=== PATIENT | male | born 1950 | race Caucasian/White ===

== ENCOUNTER → 2016-08-08 | Outpatient (CLI) | payer OTHER ==
--- NOTE | 2016-08-08 13:27 | DIAGNOSTIC IMAGING REPORT ---
MRI OF THE BRAIN WITHOUT CONTRAST CLINICAL HISTORY: Chiari malformation. Cervical myelopathy. Buzzing sound in head. COMPARISON STUDY: None. TECHNIQUE: Utilizing a 1.5 Adelina magnet and dedicated coil, multiplanar, multiecho imaging of the brain was performed without IV contrast. FINDINGS: There are no areas of restricted diffusion. No acute intracranial hemorrhage, midline shift or mass effect is present. Ventricular system is normal. Basilar cisterns are patent. There are no extra axial collections. Flow-voids for the major intracranial vessels are present. There are are a few white matter T2 hyperintense foci. These measure up to 4 mm. No intracranial masses identified on this unenhanced exam. Calvarial signal is maintained. Orbits and sinuses are unremarkable. There is no fluid within the mastoid air cells. There is no evidence of a Chiari 1 malformation. IMPRESSION: 1. No acute intracranial findings. 2. Minimal small vessel disease. 3. Unremarkable unenhanced MRI of the brain. 4. No Chiari 1 malformation. Electronically signed by: Filiberto Rangel M.D. 08/08/2016 1:25 PM Dictated Date/Time: 08/08/2016 1:16 PM
--- NOTE | 2016-08-08 13:38 | DIAGNOSTIC IMAGING REPORT ---
MRI OF THE CERVICAL SPINE WITHOUT CONTRAST WITH FLEXION AND EXTENSION INCLUDING CSF FLOW CLINICAL HISTORY: Chiari malformation. Cervical myelopathy. COMPARISON STUDY: MRI of the cervical spine January 08, 2006. TECHNIQUE: Utilizing a 1.5 Adelina magnet and dedicated coil, sagittal and axial T2-weighted sequences of the cervical spine were obtained in the neutral, flexion and extension positions with CSF flow in each position. FINDINGS: Alignment of the cervical spine is anatomic. There is no evidence for instability during flexion or extension. Cervical cord signal and caliber are normal. There is a 1.8 cm T2 hyperintense lesion at T4 vertebral body. This lesion was likely present on MRI of January 09, 2016. This lesion is likely benign. There is no suspicious marrow replacement. There is no intracanalicular mass or fluid collection. There is no evidence for a Chiari I malformation. The cerebellar tonsils are at the level the foramen magnum. CSF flow is normal in the neutral, flexion and extension positions. Mild multilevel disc bulges and small disc protrusions are noted at the C3-C4, C4-C5, C5-C6, C6-C7 and C7-T1 levels. Mild multilevel central canal narrowing is noted. The neural foramen are suboptimally assessed on this exam but there is suspected mild multilevel neural foraminal stenosis. IMPRESSION: 1. Normal cervical cord signal and caliber. 2. No Chiari I malformation. 3. Mild multilevel degenerative disc disease and facet arthrosis with mild multilevel central canal and neural foraminal stenosis. Electronically signed by: Filiberto Rangel M.D. 08/08/2016 1:36 PM Dictated Date/Time: 08/08/2016 1:28 PM
== END | disposition home or self-care (01) ==
LOC: C.MRIBC 11:10
DX: M50.00 Cervical disc disorder with myelopathy, unspecified cervical region (principal); Q07.02 Arnold-Chiari syndrome with hydrocephalus; M54.12 Radiculopathy, cervical region

== ENCOUNTER → 2017-07-09 | Outpatient (CLI) | payer OTHER ==
--- NOTE | 2017-07-09 11:41 | DIAGNOSTIC IMAGING REPORT ---
MRA HEAD WITHOUT CONTRAST CLINICAL HISTORY: 67 years-old Male presenting with family history of intracranial aneurysms, asymptomatic. TECHNIQUE: MR angiography of the head was performed without the use of intravenous contrast using 3-D [id number] technique. 3-D volumetric and/or maximum intensity projection (MIP) images were subsequently reconstructed for review. IV contrast: None. COMPARISON: Noncontrast MR brain from 08/08/2016. FINDINGS: Anterior circulation demonstrates patent intracranial portions of the internal carotid arteries. Anterior and middle cerebral arteries patent. Anterior communicating artery patent. Posterior aneurysm suspected along the cavernous portion of the left internal carotid artery measuring 1.4 mm protruding laterally (series 3 image 97). Additional blister aneurysm along the petrous-cavernous junction of the right ICA measuring 1.2 mm protruding anterolaterally (series 3 image 99). Posterior circulation demonstrates codominant vertebral arteries. Posterior inferior cerebellar arteries patent. Superior cerebellar and posterior cerebral arteries patent. Left posterior communicating artery patent. Right posterior commuting artery hypoplastic or aplastic. No focal occlusion or significant stenosis within limitations of noncontrast MR angiography. IMPRESSION: 1. 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 No other aneurysm is evident. Electronically signed by: Deep Moore M.D. 07/09/2017 11:40 AM Dictated Date/Time: 07/09/2017 11:35 AM
== END | disposition home or self-care (01) ==
LOC: C.MRI 10:35
DX: I67.1 Cerebral aneurysm, nonruptured (principal); Z82.49 Family history of ischemic heart disease and other diseases of the circulatory system

== ENCOUNTER → 2017-12-12 | Outpatient (CLI) | payer OTHER | END | disposition home or self-care (01) | LOC: C.LAB 07:43 | DX: E78.5 Hyperlipidemia, unspecified (principal); Z13.1 Encounter for screening for diabetes mellitus ==

== ENCOUNTER → 2017-12-14 | Outpatient (CLI) | payer OTHER ==
[2017-12-14 12:58] LABS: LUTEINIZING HORMONE 3.08 IU/L; PROLACTIN 5.99 ng/mL
[2017-12-14 12:59] LABS: ALBUMIN 3.9 gm/dl (3.4-5.0); ALKALINE PHOSPHATASE 40 U/L (45-117); ALT/SGPT 25 U/L (12-78); AST/SGOT 22 U/L (15-37); BLOOD UREA NITROGEN 18 mg/dl (7-18); CARBON DIOXIDE 30 mmol/L (21-32); CREATININE 0.94 mg/dl (0.60-1.40); GLUCOSE 57 mg/dl (70-99); SODIUM 140 mmol/L (136-145); TOTAL PROTEIN 7.4 gm/dl (6.4-8.2)
== END | disposition home or self-care (01) ==
LOC: C.LAB 10:22
DX: N62 Hypertrophy of breast (principal)

== ENCOUNTER → 2018-01-05 | Outpatient (CLI) | payer OTHER | END | disposition home or self-care (01) | LOC: C.PATH 08:57 | DX: N62 Hypertrophy of breast (principal) ==

== ENCOUNTER 2020-02-07 09:41 | Observation (INO) ==
--- NOTE | 2020-01-31 15:34 | PAT Medication Instructions ---
Medication Instructions Date of Service January 31, 2020 Home Medications aspirin [Aspirin Childrens] 81 mg PO QAM atorvastatin 20 mg PO QAM ibuprofen 200 mg PO Q6H PRN multivitamin 1 tab PO QAM omega 0-kal-vin-fish oil [Fish Oil] 1 cap PO QAM ASK your surgeon for instructions ibuprofen 200 mg PO Q6H PRN ASK your prescriber and surgeon aspirin [Aspirin Childrens] 81 mg PO QAM STOP taking 2 weeks before surgery (Or stop as soon as possible) omega 5-pho-xbs-fish oil [Fish Oil] 1 cap PO QAM DO NOT take the morning of surgery multivitamin 1 tab PO QAM Take morning of surgery With a small sip of water, OTHERWISE NOTHING TO EAT OR DRINK AFTER MIDNIGHT: atorvastatin 20 mg PO QAM Other Notes If you have any questions please call us at [phone] or [phone] or [phone] or [phone]
--- NOTE | 2020-02-01 09:27 | Anesthesiology Consultation ---
Date of Service February 01, 2020 Assessment & Plan (1) Encounter for pre-operative examination: Chart Review Chart Review: Acceptable Risk for Surgery (pending preop Covid testing ) and Patient seen in Pre Admission Testing Per [facility] appt on 02/01/20, pt resides in [facility]. Traveled to [place] to drop son off >2 weeks ago. No known Covid positive contacts or Covid related symptoms. Pt had Covid testing done at [facility] appt on 02/01/20= results pending. Educated on importance of self quarantining, social distancing and wearing mask in public both for the patient and household contacts. Teaching & Discussion Pre-Anesthesia Teaching/Discussion Notes: Instructed NPO after midnight before surgery,except medications with 15 cc of water. Medication instructions p rovided according to the [facility] guidelines. History Surgery Operation Date: 02/07/20 07:30 Proposed Procedures p Robotic Laparoscopic Prostatectomy with Lymph Node Dissection - Seth Burris MD Height/Weight Height: 6 ft Weight: 82.8 kg Allergies Allergy/AdvReac Type Severity Reaction Status Date / Time No Known Allergies AdvReac Unknown Verified 01/26/20 13:25 Medications Home Medications Medication Instructions Recorded Confirmed Last Taken aspirin [Aspirin Childrens] 81 mg PO QAM 09/06/19 01/26/20 09/06/19 atorvastatin 20 mg PO QAM 09/06/19 01/26/20 09/06/19 ibuprofen 200 mg PO Q6H PRN 09/06/19 01/26/20 09/06/19 09:00 600 mg multivitamin 1 tab PO QAM 09/06/19 01/26/20 09/06/19 omega 1-dml-vto-fish oil [Fish Oil] 1 cap PO QAM 09/06/19 01/26/20 09/06/19 Past Medical History Medical History Cervical radiculopathy Stable and chronic Hyperlipidemia Prostate cancer REASON FOR SURGERY- RECENTLY DISCOVERED Tinnitus Exercise / Class Metabolic Activity II 4-5 Yardwork/Stairs/Walk up hill (ONE FLIGHT OF STAIRS- NO CHEST PAIN OR SOB) Past Family History Family History Sister Diabetes Father , in his 80s S/P CABG x 5 Heart disease Mother , 63yo Brainstem hemorrhage Sister Hypertension Stroke Brother , 37yo Hodgkins disease Sister Obesity Son No problems noted. Son No problems noted. Past Surgical History Surgical History H/O hand surgery Surgery on right thumb H/O shoulder surgery 2 surgeries on right for rotator cuff 1 surgery on left for rotator cuff History of appendectomy History of carpal tunnel surgery RT/LEFT History of colonoscopy History of tonsillectomy History of tooth extraction Hx of vasectomy VASECTOMY REVERSAL Past Anesthesia History No Hx of Anesthesia Complications and No Family Hx of Anesthesia Complications History of PONV No Hx of PONV and Hx of Motion Sickness Social History Smoking Status: Former smoker tobacco type: cigarettes Do You Dip or Chew Tobacco: No Smoking End Date: QUIT AT AGE 28 Hx Alcohol Use: Yes Alcohol type: beer alcohol intake frequency: a few times a month Hx Substance Use: No substance use type: does not use Review of Systems Occ snoring- no witnessed apnea. No hx of sleep study. Patient denies chest pain, shortness of breath, dyspnea on exertion, reflux, cough, wheezing, palpitations. No hx of seizures, stroke, [place]. No hx of blood clots or blood transfusions Physical Exam Vital Signs VITALS BP 104/65 P 63 TEMP 97.6 SP02 98% RESP 16 Constitutional no acute distress ENMT Mouth: no TMJ clicking Thyromental Distance: > or= 3.5 Finger Breadths (3.5) Mallampati Class: II Partial plates on top and bottom Neck neck extension not limited Respiratory normal respiratory effort; no respiratory distress Auscultation: lungs clear to auscultation bilaterally; no wheezes Cardiovascular Rate/Rhythm: regular rate and regular rhythm Heart Sounds: no murmur Vessels: no carotid bruit Musculoskeletal Spine: no pain with cervical ROM Neurologic moves all extremities Psychiatric Orientation: alert Testing Laboratory Results 02/01/20 09:52 02/01/20 09:52 Urine Color Yellow 02/01/20 09:54 Urine Appearance Clear (Clear) 02/01/20 09:54 Urine pH 6.0 (4.5-7.5) 02/01/20 09:54 Ur Specific [place] 1.020 (1.000-1.030) 02/01/20 09:54 Urine Protein Negative (Negative) 02/01/20 09:54 Urine Glucose (UA) Negative (Negative) 02/01/20 09:54 Urine Ketones Negative (Negative) 02/01/20 09:54 Urine Nitrite Negative (Negative) 02/01/20 09:54 Ur Leukocyte Esterase Negative (Negative) 02/01/20 09:54 Blood Type A Positive 02/01/20 09:54 Antibody Screen NEGATIVE 02/01/20 09:54 Electrocardiogram Date: 09/06/19 Findings: + NSR @ (65) Chest X-Ray Date: 09/06/19 Findings: + NAD The pulmonary vasculature is noncongested. Chronic interstitial thickening is similar to previous. No airspace consolidation or large pleural effusion is identified. No pneumothorax is seen. Other Testing Chest CTA 09/06/19= There is no evidence for pulmonary embolus. No pleural effusions. No pneumothorax. No mediastinal or hilar lymphadenopathy. The central airways are patent. The lungs are clear.
[2020-02-01 10:18] LABS: Basophils # (auto) 0.02 K/uL (0-0.2); Basophils % (auto) 0.4 %; Eosinophils # (auto) 0.12 K/uL (0-0.5); Eosinophils % (auto) 2.1 %; Hematocrit (blood only) 42.9 % (42-52); Hemoglobin 14.4 g/dL (14.0-18.0); Immature Granulocytes # (auto) 0.01 K/uL (0.00-0.02); Immature Granulocytes % (auto) 0.2 %; Lymphocytes # (auto) 1.94 K/uL (1.2-3.4); Lymphocytes % (auto) 34.2 %; Mean Corpuscular Hemoglobin 31.6 pg (25-34); Mean Corpuscular Hgb Conc 33.6 g/dL (32-36); Mean Corpuscular Volume 94.3 fL (80-100); Mean Platelet Volume 10.1 fL (7.4-10.4); Monocytes # (auto) 0.46 K/uL (0.11-0.59); Monocytes % (auto) 8.1 %; Neutrophils # (auto) 3.12 K/uL (1.4-6.5); Platelet Count 276 K/uL (130-400); RDW Coefficient of Variation 13.4 % (11.5-14.5); RDW Standard Deviation 46.1 fL (36.4-46.3); Red Blood Count 4.55 M/uL (4.7-6.1); White Blood Count 5.67 K/uL (4.8-10.8)
[2020-02-01 10:24] LABS: Appearance Urine Clear (Clear); Bilirubin Urine Negative (Negative); Blood Urine Negative (Negative); Color Urine Yellow; Glucose Urine UA Negative (Negative); Ketones Urine Negative (Negative); Leukocyte Esterase Urine Negative (Negative); Nitrite Urine Negative (Negative); Protein Urine Negative (Negative); Urobilinogen Urine Negative (Negative)
[2020-02-01 10:41] LABS: BUN Creatinine Ratio 22.3 (10-20); Calcium 9.3 mg/dl (8.5-10.1); Creatinine Clr Calc Pharmacy 79.4 ml/min; Est GFR (African American) 93.6; Est GFR (Non-African American) 80.8; Potassium 4.8 mmol/L (3.5-5.1)
[~2020-02-07 09:41] MED LIST: CEFAZOLIN 3000MG 72.5 ML IV SCH; HEPARIN SOD 5,000 UNIT/0.5 ML VIAL SQ SCH; LR 15ML/HR IV SCH; MIDAZOLAM HCL 1 MG/ML 2ML VIAL ONE; fentaNYL citrate 100 MCG/2 ML VIAL ONE
--- NOTE | 2020-02-07 10:54 | History & Physical Bridge Note ---
Date of Service February 07, 2020 History & Physical Bridge Note I have examined the patient, reviewed the History & Physical and in the interval since the performance of the History & Physical I have noted the following changes of clinical significance: no changes noted
[2020-02-07] MEDS ORDERED: PHENYLEPHRINE 100MCG/ML 5ML SYR IV PRN (10:58)
[2020-02-07] MEDS ORDERED: ATROPINE SULFATE 0.1 MG/ML 10ML SYR IV PRN (10:58)
[2020-02-07] MEDS ORDERED: LABETALOL HCL IV 5 MG/ML 20ML IV PRN (10:58)
[2020-02-07] MEDS ORDERED: MEPERIDINE HCL 25 MG/ML CARP/VIAL IV PRN (10:58)
[2020-02-07] MEDS ORDERED: ePHEDrine sulfate 50 MG/ML AMP IV PRN (10:58)
[2020-02-07] MEDS ORDERED: ONDANSETRON INJ 2 MG/ML 2 ML VIAL IV PRN ×2 (10:58→16:59)
[2020-02-07] MEDS ORDERED: HYDROmorphone INJ 1 MG/ML SYRINGE IV PRN (10:58)
[2020-02-07] MEDS ORDERED: BUPIVACAINE 0.5 % 5 MG/1 ML MPF 30ML VIAL ONE (11:08)
[2020-02-07] MEDS ORDERED: LARYING-O-JET KIT (LTA) ONE (12:19)
[2020-02-07] MEDS ORDERED: NEOSTIGMINE METHYLSULFATE 5 MG/5 ML SYR ONE (12:19)
[2020-02-07] MEDS ORDERED: PHENYLEPHRINE 100MCG/ML 5ML SYR ONE (12:19)
[2020-02-07] MEDS ORDERED: LIDOCAINE HCL 2% 2 ML VIAL/AMP(20MG/ML) INFIL ONE (12:19)
[2020-02-07] MEDS ORDERED: ROCURONIUM BROMIDE 10 MG/ML 5 ML VIAL IV ONE ×2 (12:19→14:16)
[2020-02-07] MEDS ORDERED: GLYCOPYRROLATE 0.2 MG/ML VIAL ONE (12:19)
[2020-02-07] MEDS ORDERED: DEXAMETHASONE SOD INJ 4 MG/ML VIAL ONE (12:19)
[2020-02-07] MEDS ORDERED: PROPOFOL IV EMULSION 10 MG/ML 20 ML VIAL IV ONE (12:19)
[2020-02-07] MEDS ORDERED: ONDANSETRON INJ 2 MG/ML 2 ML VIAL ONE (12:19)
[2020-02-07] MEDS ORDERED: ePHEDrine sulfate 50 MG/ML SYR ONE (12:19)
[2020-02-07] MEDS ORDERED: HYDROmorphone INJ 2 MG/ML SYR/VIAL ONE (12:20)
[2020-02-07] MEDS ORDERED: SURGICEL ABSORB HEMOSTAT 2IN X 14IN TOP ONE (13:14)
[2020-02-07] MEDS ORDERED: BELLADONNA/OPIUM SUPP 60 MG SUPP PR ONE ×2 (14:20→14:54)
--- NOTE | 2020-02-07 14:59 | Operative Report ---
PG Post Operative Report Pre & Post Diagnosis Operation Date: 02/07/20 10:50 Pre-Op Diagnosis: Prostate Cancer Post-Op Diagnosis: Prostate Cancer I identified the patient and participated in the time-out.: Yes Procedure Operation Date: 02/07/20 10:50 Actual Procedures p Robotic Laparoscopic Prostatectomy with Bilateral Pelvic Lymph Node Dissection(Not Applicable) - Seth Burris MD Surgeon Jesse Burris MD Diesel Truck Crane Operator Carmella Wagoner; Armida Rader Estimated Blood Loss 50 Findings Consistent with Post-Op Diagnosis Specimens 1. Periprostatic fat 2. Left pelvic lymph nodes 3. Right pelvic lymph nodes 4. Prostate and seminal vesicles Description of Procedure The patient was identified in the preoperative holding area, appropriate informed consents were reviewed and completed, and he was transported to the operating suite. Subcutaneous heparin was administered in the pre-operative holding area. Upon arrival in the operating suite, he received appropriate antibiotics and general anesthesia. He was positioned in dorsal lithotomy, a B&O suppository was inserted after digital rectal exam, and he was prepped and draped in standard fashion. A West catheter was inserted in the sterile field. A Veress needle was passed per umbilicus with uniform insufflation of the abdomen to 15mmHg. He was placed in steep Trendelenburg position. A periumbilical incision was then made to accommodate a 12mm Visiport with 10mm 0degree laparoscope. Inspection of the abdomen was carried out, and there was no evidence of traumatic entry or injury secondary to the Veress needle. He had a prior open appendectomy and had some scar tissue in the right lower quadrant as well as the right lateral aspect of the hemiabdomen. I performed a laparoscopic lysis of adhesions for approximately 15 minutes. After confirming a clear anterior abdominal wall, ports were subsequently placed in standard robotic prostatectomy fashion without incident. To begin the robotic portion of the case, the left lateral aspect of the sigmoid was mobilized off of the left pelvic side wall to allow the pouch of Saul to be appropriately visualized. I then made an incision in the pouch of Saul, overlying the seminal vesicles. Both SVs as well as the ampullae of the vasa were entirely dissected, with the vasa transected 3cm from the prostate. The medial umbilical ligaments were then controlled with bipolar electrocautery just inferior to the umbilicus. Following cauterization, they were divided utilizing monopolar cautery. A peritoneal incision was carried from this location to the medial aspect of the internal inguinal rings bilaterally with care to avoid opening through the ring. This incision was concluded when the vas deferens was reached. Dissection of the bladder and prostate off of the posterior aspect of the pubic arch was completed allowing full visualization of the prostate. The fat overlying the prostate was removed en bloc and passed off the table as a specimen labeled "periprostatic fat". The endopelvic fascia was cleared during this portion of the procedure, and subsequently opened - first on the right and then the left. The incision through the endopelvic fascia began near the prostate-bladder junction and was carried to the apex with extreme care to preserve all lateral levator musculature as well as the periurethral musculature and sphincter complex. I additionally preserved the puboprostatic ligaments. I then controlled the DVC with a 3-0 V-lock suture in overla pping/figure of 8 fashion. The lymph node dissection was then conducted. External iliac vessels were identified on the pelvic side wall. The packet of fat and lymphatic tissue that resides just under the iliac vein was elevated and off of the vein with a split and roll technique. The packet was dissected laterally to the circumflex vein and distally to the obturator nerve which was preserved. The proximal aspect of the packet was carried towards the bifurcation of the iliac vessels. A combination of monopolar and bipolar cautery were used to assist with control. After completing the dissection on both sides, the packets were collected and passed off of the table as specimens labeled "pelvic lymph nodes". My attention then returned to the prostate, with identification of the bladder neck aided by gentle traction on the West catheter and lateral to medial pressure at the presumed level of the bladder neck with the robotic instruments. An anterior cystotomy was made, the West balloon deflated and the catheter guided through the incision to allow anterior retraction. I attempted to preserve maximal bladder neck musculature as I circumferentially dissected around the bladder neck. After incision through the posterior aspect of the mucosa, the dissection was carried through detrusor muscle until the bilateral ampullae of the vasa were identified. The previously dissected vasa and SVs were brought through the incision and used to elevated the prostate anteriorly. A posterior plane behind the prostate was then developed - splitting Denonvilliers's fascia. This dissection was carried as far as possible towards the apex as well as far as possible laterally. An incision in the lateral prostatic fascia was then made bilaterally to facilitate control of the vascular pedicles and preservation of the nerve bundles. Vasculature running along the posterior/lateral aspect of the prostate was preserved as well as the tissue containing the nerves. The pedicles were then controlled with a series of Weck clips. The apical attachments of the prostate were remaining at that stage. The DVC was divided after control with bipolar cautery over the prostate. Continuous inspection from anterior and lateral views allowed me to closely follow the apical contour of the prostate and maximally preserve urethral length and tissue. The prostate was entirely freed at that point, and collected in an EndoCatch bag before being moved out of the field of vision. Hemostasis was confirmed and anastomosis of the bladder and urethra was completed utilizing a double armed V- Lock stitch. A new West catheter was inserted and the anastomosis tested with irrigation. There was no evidence of leak. A lise style stitch was placed bilaterally to functionally marsupialize the area of the lymph node dissection. The robot was undocked, the specimen extracted through expansion of the anna- umbilical camera port. The fascia was closed with a series of 0-PDS figure of 8 stitches. The right physical laboratory assistant port was closed in two layers - with a figure of 8 0-Vicryl to reapproximate the fascia followed by 4-0 Monocryl to close the skin. Monocryl was used to close all other skin incisions. All wounds were dressed with Dermabond. The case was concluded and the patient taken to the PACU in stable condition. Carmella Wagoner and Armida Perez were present and scrubbed from incision to closureassisting throughout the case. I attest to the content of the Intraoperative Record and any orders documented therein. Any exceptions are noted below.
[2020-02-07] MEDS: fentaNYL citrate 100 MCG/2 ML VIAL IV PRN ×4 (15:37→15:57)
[2020-02-07 15:39] LABS: Basophils # (auto) 0.01 K/uL (0-0.2); Basophils % (auto) 0.1 %; Eosinophils # (auto) 0.02 K/uL (0-0.5); Eosinophils % (auto) 0.2 %; Immature Granulocytes # (auto) 0.01 K/uL (0.00-0.02); Immature Granulocytes % (auto) 0.1 %; Lymphocytes # (auto) 1.04 K/uL (1.2-3.4); Lymphocytes % (auto) 9.5 %; Mean Corpuscular Hemoglobin 31.4 pg (25-34); Mean Corpuscular Volume 94.2 fL (80-100); Mean Platelet Volume 9.8 fL (7.4-10.4); Monocytes # (auto) 0.19 K/uL (0.11-0.59); Monocytes % (auto) 1.7 %; Neutrophils # (auto) 9.73 K/uL (1.4-6.5); Neutrophils % (auto) 88.4 %; Platelet Count 224 K/uL (130-400); RDW Coefficient of Variation 13.4 % (11.5-14.5); RDW Standard Deviation 46.2 fL (36.4-46.3); Red Blood Count 4.46 M/uL (4.7-6.1)
[2020-02-07 15:58] LABS: BUN Creatinine Ratio 14.8 (10-20); Calcium 8.5 mg/dl (8.5-10.1); Creatinine Clr Calc Pharmacy 78.6 ml/min; Est GFR (African American) 92.4; Est GFR (Non-African American) 79.8; Potassium 3.9 mmol/L (3.5-5.1)
[2020-02-07 16:02] LABS: Mean Corpuscular Hgb Conc 33.3 g/dL (32-36)
--- NOTE | 2020-02-07 16:04 | Anesthesiology Progress Note ---
Date of Service February 07, 2020 Anesthesia Post Procedure Vital Signs Vital Signs: Temp Pulse Pulse Resp BP BP Pulse Ox 02/07/20 15:55 59 L 15 120/64 100 02/07/20 15:45 57 L 12 117/57 L 100 02/07/20 15:35 48 L 12 110/58 L 100 02/07/20 15:25 51 L 13 112/58 L 100 02/07/20 15:17 36.4 C L 50 L 14 111/56 L 100 02/07/20 10:13 36.9 C 61 18 124/65 98 02/07/20 10:02 36.9 C 61 18 124/65 98 Pain Intensity Abdomen: Pain Intensity: 5 Transfer of Care Handoff Completed per policy Notes Mental Status: alert / awake / arousable Patient Amnestic to Procedure: Yes Nausea / Vomiting: adequately controlled Pain: adequately controlled Airway Patency, RR, SpO2: stable & adequate BP & HR: stable & adequate Hydration State: stable & adequate Anesthetic Complications: no major complications apparent
[2020-02-07] MEDS ORDERED: OXYCODONE HCL IR 5 MG TAB (IMMEDIATE RELEASE) PO PRN (16:59)
[2020-02-07] MEDS ORDERED: MoRPHine SULFATE 2 MG/ML CARP IV PRN ×2 (17:14)
[2020-02-07] MEDS: ACETAMINOPHEN 1,000 MG/100 ML VIAL IV SCH (17:30)
[2020-02-07] MEDS: LACTATED RINGER'S 1,000 ML IV SCH (17:35)
[2020-02-07] MEDS: CEFAZOLIN 2000MG 2,000 MG/15 ML SYR IV SCH (20:36)
[2020-02-07] MEDS: HEPARIN SOD 5,000 UNIT/0.5 ML VIAL SQ SCH (20:55)
[2020-02-07] MEDS: OXYCODONE HCL IR 5 MG TAB (IMMEDIATE RELEASE) PO PRN (20:56)
[2020-02-08] MEDS: LACTATED RINGER'S 1,000 ML IV SCH (01:50)
[2020-02-08] MEDS: ACETAMINOPHEN 1,000 MG/100 ML VIAL IV SCH ×2 (01:50→09:05)
[2020-02-08] MEDS: OXYCODONE HCL IR 5 MG TAB (IMMEDIATE RELEASE) PO PRN ×2 (02:22→14:06)
[2020-02-08] MEDS: CEFAZOLIN 2000MG 2,000 MG/15 ML SYR IV SCH (04:57)
[2020-02-08 05:46] LABS: Basophils # (auto) 0.01 K/uL (0-0.2); Basophils % (auto) 0.1 %; Hematocrit (blood only) 40.2 % (42-52); Hemoglobin 13.3 g/dL (14.0-18.0); Immature Granulocytes # (auto) 0.03 K/uL (0.00-0.02); Immature Granulocytes % (auto) 0.3 %; Lymphocytes # (auto) 1.45 K/uL (1.2-3.4); Lymphocytes % (auto) 12.7 %; Mean Corpuscular Hemoglobin 31.3 pg (25-34); Mean Corpuscular Hgb Conc 33.1 g/dL (32-36); Mean Corpuscular Volume 94.6 fL (80-100); Mean Platelet Volume 9.8 fL (7.4-10.4); Monocytes # (auto) 0.93 K/uL (0.11-0.59); Monocytes % (auto) 8.1 %; Neutrophils # (auto) 9.02 K/uL (1.4-6.5); Neutrophils % (auto) 78.8 %; Platelet Count 243 K/uL (130-400); RDW Coefficient of Variation 13.6 % (11.5-14.5); Red Blood Count 4.25 M/uL (4.7-6.1); White Blood Count 11.44 K/uL (4.8-10.8)
[2020-02-08 06:04] LABS: Potassium 4.2 mmol/L (3.5-5.1)
[2020-02-08 06:05] LABS: BUN Creatinine Ratio 11.8 (10-20); Calcium 8.4 mg/dl (8.5-10.1); Creatinine Clr Calc Pharmacy 89.8 ml/min; Est GFR (African American) 102.8; Est GFR (Non-African American) 88.7
--- NOTE | 2020-02-08 08:32 | Urology Progress Note ---
Date of Service February 08, 2020 Assessment & Plan (1) Prostate cancer: POD#1 s/p robotic prostatectomy -HL IVF - advance diet ambulate likely d/c home after lunch today Admission and Anticipated Discharge Date Admission Date: February 07, 2020 Subjective doing very well after his prostatectomy minimal pain out of bed last night labs stable Physical Exam Physical Exam: clear urine incisions appropriate, no erythema, no discharge Constitutional: well developed and well nourished Respiratory: no respiratory distress Cardiovascular: Extremities: no pedal edema Gastrointestinal (Abdomen): Inspection/Auscultation: abdomen normal to inspection Results & Data ([facility]) Vital Signs (Past 12 Hours) Vital Signs Temp Pulse Resp BP Pulse Ox 02/08/20 07:10 36.6 C 58 L 16 94/57 L 97 02/08/20 03:24 36.8 C 60 16 104/57 L 96 02/07/20 23:25 36.5 C 76 16 109/61 98 PG Care Time/CCT Total # of Minutes Spent Total Time Spent with Patient: Total time spent is greater than 50% in coordination of care (as documented) at patient's floor/unit and/or counseling patient: Coding Level of Care Code None Diagnoses Prostate cancer C61
[2020-02-08] MEDS ORDERED: MULTIVITAMIN TAB PO SCH (09:00)
[2020-02-08] MEDS ORDERED: ATORVASTATIN 20 MG TAB PO SCH (09:00)
[2020-02-08] MEDS: HEPARIN SOD 5,000 UNIT/0.5 ML VIAL SQ SCH (09:05)
== END 2020-02-08 15:20 | disposition home or self-care (01) ==
LOC: ASU 09:41 → 3W 15:18 → INTOOBSV 15:18